=== PATIENT | male | born 1955 | race Caucasian/White ===

== ENCOUNTER → 2020-11-28 15:10 | Outpatient (CLI) | payer OTHER, SELFPAY ==
--- NOTE | 2020-11-28 | DI.NM.S_ITS ---
PROCEDURE: NM EXERCISE TREADMILL NON NUC COMPARISON: None. INDICATIONS: Dyspnea, unspecified FINDINGS: Patient exercised for 8 minutes and 14 seconds, reading 98% of maximum predicted heart rate. 10.1 METs, ДМИТРИЙ -5%. Appropriate BP response to exercise (rest BP 106/60mmHg, max BP 150/74mmHg). No angina with exercise. No ST-T changes with exercise. IMPRESSION: Low risk, normal treadmill ECG only stress test. Adequate chronotropic response with no ischemic symptoms and no ischemic ST changes. Dictated by: Connie Dickerson MD on 11/28/2020 at 17:51 Approved by: Connie Dickerson MD on 11/28/2020 at 17:58
== END ==
PROVIDERS: PCP Student in an Organized Health Care Education/Training Program; Referring Provider Student in an Organized Health Care Education/Training Program; Visit Provider Student in an Organized Health Care Education/Training Program
DX: R06.00 Dyspnea, unspecified (principal)
CPT/HCPCS: 93017